=== PATIENT | female | born 1995 | race African-American/Black ===

== ENCOUNTER 2020-10-14 11:05 | Emergency (ER) | payer OTHER ==
[~2020-10-14] VITALS: Ht 165.1 cm; Wt 72.6 kg
[2020-10-14] MEDS ORDERED: ATIVAN0.5 M1 PO (16:00)
[2020-10-14] MEDS ORDERED: LEVSIN/SL0.125 MG SL (16:00)
[2020-10-14] MEDS ORDERED: PEPCID AC20 MG PO (16:00)
== END 2020-10-14 16:19 | disposition home or self-care (01) ==
LOC: ER 11:05
DX: K29.00 Acute gastritis without bleeding (principal)